=== PATIENT | male | born 1970 | race Caucasian/White ===

== ENCOUNTER 2025-10-11 14:31 | Outpatient (OUT) | payer OTHER, SELFPAY ==
--- NOTE | 2025-10-11 14:53 | ECG_ITS ---
[facility] Test Date: 2025-10-11 Pat Name: MIKE MAI Department: Room: - Gender: Male Annual Giving Director: : 1970 Requested By: TUNDE BELTRAN Order Number: [id number] Steven MD: LINDA GOOD M.D. Measurements Intervals [place] Rate: 75 P: 59 MO: 193 QRS: 71 QRSD: 181 T: -88 QT: 451 QTc: 504 Interpretive Statements SINUS RHYTHM LEFT BUNDLE BRANCH BLOCK [120+ ms QRS DURATION, 80+ ms Q/S IN V1/V2, 85+ ms R IN I/aVL/V5/V6] Abnormal ECG No previous ECG available for comparison Electronically Signed On 10-11-2025 17:24:37 EST by LINDA GOOD M.D.
== END 2025-10-11 14:32 | disposition home or self-care (01) ==
PROVIDERS: PCP Family Medicine; Visit Provider Family Medicine
DX: R55 Syncope and collapse (principal); R94.31 Abnormal electrocardiogram [ECG] [EKG]
CPT/HCPCS: 93005